=== PATIENT | female | born 1985 | race Caucasian/White ===

== ENCOUNTER 2020-04-14 10:41 | Emergency (ER) | payer OTHER ==
--- NOTE | 2020-04-14 11:20 | TELE ---
HPI Do you have fever,cough or shortness of breath?: No - General Reason For Visit: COVID 19 History Source: Patient Exam Limitations: No Limitations - History of Present Illness Timing/Duration: unsure 04/14/20 11:15 Patient is a 34 year old female with no significant medical history is requesting covid testing for her and her 2 children. Patient states she is flying to [facility] and needs the testing done for her trip. Reports no symptoms at present such as fever, chills, loss of appetite or bodyaches. Past History - Travel History Traveled outside of the country in the last 30 days: No Close contact w/someone who was outside of country & ill: No - Medical History Anemia: No Cancer: No Hx Myocardial Infarction: No CVA: No COPD: No CHF: No Review of Systems - Review of Systems Able to Perform ROS?: Yes Limited [place]i proficient: No Constitutional: No: Chills, Fever, Malaise Respiratory: No: Cough Cardiac (ROS): No: Chest Pain ABD/GI: No: Poor Appetite *Physical Exam - Physical Exam General Appearance: Yes: Nourished HEENT: positive: Normal Voice Neck: positive: Supple Respiratory/Chest: negative: Accessory Muscle Use Integumentary: positive: Normal Color. negative: Erythema, Diaphoresis Neurologic: positive: Fully Oriented, Alert - Medical Decision Making 04/14/20 11:18 Patient is a 34 year old female with no significant medical history requesting covid testing for travel. Plan: covid testing ordered covid counseling done patient instructed to proceed to [place] for testing all questions answered Discharge Diagnosis at time of Disposition: Counseled about COVID-19 virus infection - Referrals - Patient Instructions - Discharge Disposition: HOME Condition at time of Disposition: Stable
== END 2020-04-14 11:20 | disposition home or self-care (01) ==
LOC: JVIRT 10:41
DX: Z11.59 Encounter for screening for other viral diseases (principal)
CPT/HCPCS: Q3014-GT